=== PATIENT | female | born 1990 | race Caucasian/White ===

== ENCOUNTER 2018-11-05 14:19 | Inpatient (IN) | payer OTHER ==
[2018-11-05] MEDS ORDERED: LACTATED RINGER'S 1,000 ML IV (14:43)
[2018-11-05] MEDS ORDERED: MISOPROSTOL 200 MCG TAB PR ×2 (15:00→18:30)
[2018-11-05] MEDS ORDERED: OXYTOCIN 30 UNITS/LR 500 ML IV ×2 (15:00→18:30)
[2018-11-05] MEDS ORDERED: CARBOPROST 250 MCG INJ IM ×2 (15:00→18:30)
[2018-11-05] MEDS ORDERED: METHYLERGONOVINE 0.2 MG INJ IM ×2 (15:00→18:30)
[2018-11-05] MEDS ORDERED: CEFAZOLIN 2 GM/50 ML (PMX) 50 ML IVPB ×2 (15:00→18:30)
[2018-11-05 15:41] LABS: ADD MAN DIFF? NO
[2018-11-05 15:42] LABS: WHITE BLOOD COUNT 8.6 10^3/ul (4.8-10.8)
[2018-11-05 15:42] LABS: BASOPHILS % 0.2 % (0.0-2.0); EOSINOPHILS % 0.2 % (0.0-7.0); HEMATOCRIT 32.4 % (37.0-47.0); HEMOGLOBIN 10.4 g/dl (12.0-16.0); LYMPHOCYTES # 1.6 10^3/ul (0.8-2.9); MEAN CORPUSCULAR HEMOGLOBIN 27.7 pg (29.0-33.0); MEAN CORPUSCULAR HGB CONC 32.1 g/dl (32.0-37.0); MEAN CORPUSCULAR VOLUME 86.4 fl (82.0-101.0); MEAN PLATELET VOLUME 10.1 fl (7.4-10.4); MONOCYTE # 0.6 10^3/ul (0.3-0.9); MONOCYTES % 7.5 % (0.0-11.0); NEUTROPHIL # 6.3 10^3/ul (1.6-7.5); NEUTROPHILS % 72.9 % (39.0-77.0); PLATELET COUNT 307 10^3/UL (140-415); RED BLOOD COUNT 3.75 10^6/ul (4.20-5.40); RED CELL DISTRIBUTION WIDTH 14.6 % (11.5-14.5)
[2018-11-05 16:07] LABS: INR 0.87; PROTIME 11.9 Sec (11.9-14.9); PT RATIO 0.9
[2018-11-05 16:08] LABS: PARTIAL THROMBOPLASTIN TIME 30.9 Sec (23.0-35.0)
[2018-11-05] MEDS ORDERED: HYDROmorphONE 0.5 MG/0.5 ML SYG IV ×2 (17:00)
[2018-11-05] MEDS ORDERED: DIPHENHYDRAMINE 50 MG INJ IV (17:00)
[2018-11-05] MEDS ORDERED: ALBUTEROL 0.083% (NEB) 2.5 MG/3 ML AMP HHN (17:00)
[2018-11-05] MEDS ORDERED: HYDROmorphONE 1 MG/5 ML IV SYRINGE IV ×3 (17:00)
[2018-11-05] MEDS ORDERED: NALOXONE (0.4 MG/ML) INJ IV (17:00)
[2018-11-05] MEDS ORDERED: FENTAnyl 50 MCG/ML VIAL IV ×3 (17:00)
[2018-11-05] MEDS ORDERED: morphine SULFATE/PF (10 MG/10 ML) INJ (17:15)
[2018-11-05] MEDS ORDERED: PHENYLephrine (100 MCG/ML) 5ML SYG ×5 (17:23→18:14)
[2018-11-05] MEDS ORDERED: FENTAnyl 50 MCG/ML VIAL (17:41)
[2018-11-05] MEDS ORDERED: NACL 0.9% 3 ML SYG IV (18:30)
[2018-11-05] MEDS: ONDANSETRON 4 MG INJ IV (18:55)
[2018-11-05] MEDS: DIPHENHYDRAMINE 50 MG INJ IV (18:55)
[2018-11-05] MEDS: OXYTOCIN 30 UNITS/LR 500 ML IV ×2 (18:56→22:45)
[2018-11-05] MEDS: KETOROLAC 30 MG INJ IV (20:16)
[2018-11-05] MEDS: SENNA/DOCUSATE NA (8.6MG/50MG) TAB PO (21:00)
[2018-11-06] MEDS: ONDANSETRON 4 MG INJ IV (00:03)
[2018-11-06] MEDS: CEFAZOLIN 2 GM/50 ML (PMX) 50 ML IVPB ×3 (03:03→17:29)
[2018-11-06 07:29] LABS: ADD MAN DIFF? NO
[2018-11-06 07:31] LABS: BASOPHILS % 0.1 % (0.0-2.0); EOSINOPHILS % 0.1 % (0.0-7.0); HEMATOCRIT 27.9 % (37.0-47.0); LYMPHOCYTES # 1.4 10^3/ul (0.8-2.9); LYMPHOCYTES % 13.7 % (15.0-51.0); MEAN CORPUSCULAR HEMOGLOBIN 27.7 pg (29.0-33.0); MEAN CORPUSCULAR HGB CONC 32.3 g/dl (32.0-37.0); MEAN CORPUSCULAR VOLUME 85.8 fl (82.0-101.0); MEAN PLATELET VOLUME 10.1 fl (7.4-10.4); MONOCYTE # 0.6 10^3/ul (0.3-0.9); MONOCYTES % 5.9 % (0.0-11.0); NEUTROPHIL # 8.2 10^3/ul (1.6-7.5); NEUTROPHILS % 79.8 % (39.0-77.0); PLATELET COUNT 236 10^3/UL (140-415); RED BLOOD COUNT 3.25 10^6/ul (4.20-5.40); RED CELL DISTRIBUTION WIDTH 14.3 % (11.5-14.5)
[2018-11-06 07:31] LABS: WHITE BLOOD COUNT 10.3 10^3/ul (4.8-10.8)
[2018-11-06] MEDS: LACTATED RINGER'S 1,000 ML IV ×2 (10:01→18:00)
[2018-11-06] MEDS: SENNA/DOCUSATE NA (8.6MG/50MG) TAB PO ×2 (10:05→20:12)
[2018-11-06] MEDS: LANOLIN HPA 1 PKT TOP (13:55)
[2018-11-06] MEDS: KETOROLAC 30 MG INJ IV (13:55)
[2018-11-06 15:15] LABS: RAPID PLASMA REAGIN NONREACTIVE (NR)
[2018-11-06] MEDS: OXYCODONE/ACETAMINOPHEN (5/325) TAB PO (19:49)
[2018-11-06] MEDS: IBUPROFEN 600 MG TAB PO (23:32)
[2018-11-07] MEDS: IBUPROFEN 600 MG TAB PO ×4 (05:32→23:35)
[2018-11-07] MEDS: FERROUS SULFATE (EC) 325 MG TAB PO ×2 (08:28→20:23)
[2018-11-07] MEDS: SENNA/DOCUSATE NA (8.6MG/50MG) TAB PO ×2 (08:28→20:23)
[2018-11-07] MEDS: OXYCODONE/ACETAMINOPHEN (5/325) TAB PO ×3 (10:16→20:24)
[2018-11-08] MEDS: IBUPROFEN 600 MG TAB PO ×2 (06:12→12:01)
[2018-11-08] MEDS: SENNA/DOCUSATE NA (8.6MG/50MG) TAB PO (10:05)
[2018-11-08] MEDS: FERROUS SULFATE (EC) 325 MG TAB PO (10:05)
== END 2018-11-08 14:48 | disposition home or self-care (01) | DRG 785 ==
LOC: L-D 14:19 → PP1 20:57
PROVIDERS: Obstetrics & Gynecology
PROC: 10D00Z1 Extraction of Products of Conception, Low, Open Approach (ICD-10-PCS; principal; 2018-11-06)
PROC: 0UB70ZZ Excision of Bilateral Fallopian Tubes, Open Approach (ICD-10-PCS; 2018-11-06)
DX: O34.211 Maternal care for low transverse scar from previous cesarean delivery (principal); Z3A.39 39 weeks gestation of pregnancy; Z37.0 Single live birth; Z30.2 Encounter for sterilization
CPT/HCPCS: 85025; 85610; 85730; 86592; 86850; 86900; 86901; 88302; 99464